=== PATIENT | male | born 1970 | race Caucasian/White ===

== ENCOUNTER 2016-11-08 13:59 | Inpatient (IN) | payer SELFPAY ==
[~2016-11-08] VITALS: Ht 170.2 cm; Wt 101.3 kg
[~2016-11-08 13:59] MED LIST: Aspirin Chewable PO; NO HOME MEDS; Ultram PO; Zestril,Prinivil PO
[2016-11-08 15:10] LABS: HEMATOCRIT 41.4 % (38.0-50.0); MCH 34.1 PG (29.0-34.0); MCHC 34.8 G/DL (30.0-36.0); MCV 98.1 FL (86-99); MEAN PLAT.VOLUME 10.5 uM^3 (9.0-12.4); PLATELET COUNT 305 K/uL (156-360); RBC DIS.WIDTH-CV 12.5 % (11.8-14.6); RBC DIS.WIDTH-SD 44.9 % (39-53); RED BLOOD COUNT 4.22 M/uL (4.00-5.50)
[2016-11-08 15:22] LABS: ANION GAP 17 MEQ/L (2-14); CHLORIDE 93 MEQ/L (99-109); SAMPLE HEMOLYSIS CHECK 0; SAMPLE ICTERIC CHECK 0; SAMPLE LIPEMIA CHECK 1; SODIUM 128 MEQ/L (136-147)
[2016-11-08 15:30] LABS: TROP-I INTERPRETATION NEGATIVE; TROPONIN-I < 0.01 ng/mL (0.0-0.30)
[2016-11-08 16:12] LABS: GFR ESTIMATE (CALCULATED) > 59 mL/min/; GLUCOSE 611 mg/dL (70-99); UREA NITROGEN (BUN) 8 mg/dL (9-23)
[2016-11-08 18:05] LABS: BASE EXCESS 0.4 mEq/L (-3 to +3); BICARBONATE 23.1 mEq/L (22-26); CARBOXY HGB 6.5 % (0-5); PCO2 31 mm Hg (35-45); PO2 88 mm Hg (80-100); pH 7.48 (7.35-7.45)
[2016-11-08 18:06] LABS: COMMENTS - BLOOD GASES A+C+; DEVICE RA; FI02 21 %; SITE RRA; TOTAL RESP RATE 16 resp/min
[2016-11-08 18:41] LABS: POINT-OF-CARE METER ID UU13113702
[2016-11-08] MEDS ORDERED: LISINOPRIL20 MG PO (20:20)
[2016-11-08] MEDS ORDERED: TRAMADOL HCL50 MG PO (20:21)
[2016-11-08] MEDS ORDERED: ELAVIL25 MG PO (20:22)
[2016-11-08] MEDS ORDERED: HUMULIN 70100 UNIT/2 SC (20:22)
[2016-11-08] MEDS ORDERED: NORVASC10 MG PO (20:23)
[2016-11-08] MEDS ORDERED: SALINE NOSE SPR45 M1 BOTH NARES (20:23)
[2016-11-08] MEDS ORDERED: ALLOPURINOL100 MG PO (20:23)
[2016-11-08 21:12] LABS: ALKALINE PHOSPHATASE 94 IU/L (3-129); DIRECT BILIRUBIN 0.1 mg/dL (0.0-0.3); LIPASE 40 U/L (1.0-51.0); TOTAL BILIRUBIN 0.4 MG/DL (0.0-1.0)
[2016-11-08 21:39] LABS: POINT-OF-CARE METER ID UU13113702
[2016-11-08 21:51] LABS: TROP-I INTERPRETATION NEGATIVE; TROPONIN-I < 0.01 ng/mL (0.0-0.30)
[2016-11-08 22:02] LABS: MAGNESIUM 1.6 mg/dL (1.3-2.7)
[2016-11-08 22:06] LABS: SERUM ETHYL ALCOHOL < 10 mg/dL
[2016-11-08 22:12] LABS: Estimated Average Glucose 255 mg/dL (70-123); HEMOGLOBIN A1c (GLYCOHEMOGLOB) 10.5 % HGB (Below 5.7)
[2016-11-08 22:15] VITALS: BP 186/118
[2016-11-08 23:33] VITALS: BP 129/87
[2016-11-09] VITALS (8 sets, daily range): BP systolic 130–180; BP diastolic 74–115
[2016-11-09 03:42] LABS: HEMATOCRIT 37.4 % (38.0-50.0); MCH 33.3 PG (29.0-34.0); MCHC 33.7 G/DL (30.0-36.0); MCV 98.9 FL (86-99); MEAN PLAT.VOLUME 9.8 uM^3 (9.0-12.4); PLATELET COUNT 249 K/uL (156-360); RBC DIS.WIDTH-CV 12.8 % (11.8-14.6); RBC DIS.WIDTH-SD 46.3 % (39-53); RED BLOOD COUNT 3.78 M/uL (4.00-5.50); WHITE BLOOD COUNT 8.2 K/uL (4.1-10.2)
[2016-11-09 03:55] LABS: CHLORIDE 107 mEq/L (99-109); POTASSIUM 3.8 mEq/L (3.7-5.4)
[2016-11-09 03:58] LABS: ANION GAP 10 MEQ/L (2-14)
[2016-11-09 04:01] LABS: GFR ESTIMATE (CALCULATED) > 59 mL/min/
[2016-11-09 04:02] LABS: UREA NITROGEN (BUN) 6 mg/dL (9-23)
[2016-11-09 04:03] LABS: TROP-I INTERPRETATION NEGATIVE; TROPONIN-I < 0.01 ng/mL (0.0-0.30)
[2016-11-09 04:05] LABS: GLUCOSE 195 mg/dL (70-99); SODIUM 140 mEq/L (136-147)
[2016-11-09 04:38] LABS: HDL CHOLESTEROL 27 MG/DL (Desirable>=40); NON-HDL CHOLESTEROL 199 mg/dL (Desirable<160); TOTAL CHOLESTEROL 226 mg/dL (Desirable<200); TRIGLYCERIDES 682 MG/DL (Normal: <150)
[2016-11-09 09:55] LABS: AMPHETAMINES QUANT VALUE 0 NG/ML; BARBITUATES QUANT VALUE 0 NG/ML; BENZODIAZEPINES, URINE SCREEN POSITIVE (200 ng/mL); MARIJUANA QUANT VALUE 0 NG/ML; PHENCYCLIDINE QUANT VALUE 0 NG/ML
[2016-11-10 03:24] VITALS: BP 139/97
[2016-11-10 07:44] VITALS: BP 147/88
[2016-11-10 11:34] VITALS: BP 136/84
[2016-11-10] MEDS ORDERED: AMLODIPINE BESY10 MG PO ×2 (14:21→14:22)
[2016-11-10] MEDS ORDERED: FENOFIBRATE48 MG PO ×2 (14:21)
[2016-11-10] MEDS ORDERED: ASPIR-LOW81 MG PO ×2 (14:21→14:22)
[2016-11-10] MEDS ORDERED: PRAVASTATIN SOD40 MG PO ×2 (14:21→14:22)
[2016-11-10] MEDS ORDERED: ALLOPURINOL100 MG PO ×2 (14:21→14:23)
[2016-11-10] MEDS ORDERED: GABAPENTIN100 MG PO ×2 (14:21→14:22)
[2016-11-10] MEDS ORDERED: HYDROCHLOROTHIA25 MG PO ×2 (14:21→14:23)
[2016-11-10] MEDS ORDERED: LISINOPRIL40 MG PO ×2 (14:21→14:22)
[2016-11-10] MEDS ORDERED: AMITRIPTYLINE H25 MG PO ×2 (14:21→14:23)
[2016-11-10 15:55] VITALS: BP 161/88
[2016-11-10 19:30] VITALS: BP 145/83
[2016-11-10 21:05] LABS: POINT-OF-CARE METER ID UU13113717
[2016-11-10 23:34] VITALS: BP 131/92
[2016-11-11 03:38] VITALS: BP 136/79
[2016-11-11 07:20] VITALS: BP 130/88
[2016-11-11 15:20] VITALS: BP 132/70
[2016-11-11 20:48] LABS: POINT-OF-CARE METER ID UU13113717
== END 2016-11-11 16:35 | disposition home or self-care (01) | DRG 302 ==
LOC: EME 13:59 → EDOF 20:56 → 5SOUTH 20:56
PROVIDERS: Emergency Medicine; Hospitalist; Internal Medicine
DX: I25.9 Chronic ischemic heart disease, unspecified (principal); E13.10 Other specified diabetes mellitus with ketoacidosis without coma; I11.9 Hypertensive heart disease without heart failure; E66.01 Morbid (severe) obesity due to excess calories; M87.851 Other osteonecrosis, right femur; E78.5 Hyperlipidemia, unspecified; E86.0 Dehydration; F17.210 Nicotine dependence, cigarettes, uncomplicated; G47.30 Sleep apnea, unspecified; M47.9 Spondylosis, unspecified; Z68.34 Body mass index [BMI] 34.0-34.9, adult; Z79.4 Long term (current) use of insulin; Z79.899 Other long term (current) drug therapy; F10.20 Alcohol dependence, uncomplicated; H53.8 Other visual disturbances; M25.572 Pain in left ankle and joints of left foot; M79.1 Myalgia; M54.9 Dorsalgia, unspecified; R06.02 Shortness of breath; R07.2 Precordial pain; R20.0 Anesthesia of skin; R20.2 Paresthesia of skin; R60.9 Edema, unspecified; R94.39 Abnormal result of other cardiovascular function study; K76.0 Fatty (change of) liver, not elsewhere classified; K57.30 Diverticulosis of large intestine without perforation or abscess without bleeding; I70.0 Atherosclerosis of aorta
CPT/HCPCS: 36600; 70450; 70551; 71020; 71275; 74174; 78452; 80048; 80061; 80076; 80306 90; 82803; 82948; 83036; 83690; 83735; 84484; 84999; 85027; 93005; 93017; 93880; 99281; 99285; A9500; G0480; J1650; J1815; J2060; J2270; J2785; J7030

== ENCOUNTER 2016-11-14 09:29 | Day surgery (SDC) | payer SELFPAY ==
[~2016-11-14 09:29] MED LIST changes: +ALLOPURINOL100 MG PO; +AMITRIPTYLINE H25 MG PO; +AMLODIPINE BESY10 MG PO; +ASPIR-LOW81 MG PO; +ELAVIL25 MG PO; +FENOFIBRATE48 MG PO; +GABAPENTIN100 MG PO; +HUMULIN 70100 UNIT/2 SC; +HYDROCHLOROTHIA25 MG PO; +LISINOPRIL20 MG PO; +LISINOPRIL40 MG PO; +NORVASC10 MG PO; +PRAVASTATIN SOD40 MG PO; +SALINE NOSE SPR45 M1 BOTH NARES; +TRAMADOL HCL50 MG PO
== END 2016-11-14 19:30 | disposition home or self-care (01) ==
LOC: CATH 09:29
PROC: 4A023N7 Measurement of Cardiac Sampling and Pressure, Left Heart, Percutaneous Approach (ICD-10-PCS; principal; 2016-11-14)
PROC: B2111ZZ Fluoroscopy of Multiple Coronary Arteries using Low Osmolar Contrast (ICD-10-PCS; principal; 2016-11-14)
PROC: B2151ZZ Fluoroscopy of Left Heart using Low Osmolar Contrast (ICD-10-PCS; principal; 2016-11-14)
DX: R07.9 Chest pain, unspecified (principal); I10 Essential (primary) hypertension; E78.5 Hyperlipidemia, unspecified; F17.210 Nicotine dependence, cigarettes, uncomplicated
CPT/HCPCS: C1769; C1887; J1644; J2250; J3010

== ENCOUNTER 2017-01-17 13:44 | Inpatient (IN) | payer OTHER ==
[~2017-01-17] VITALS: Ht 170.2 cm; Wt 95.1 kg
[2017-01-17 14:35] LABS: EOSINOPHIL (%) 0.4 % (0-5); HEMATOCRIT 48.8 % (38.0-50.0); IMMATURE GRANULOCYTE (%) 0.4 % (0.0-0.7); INSTRUMENT ABS NEUTROPHIL CT 7.4 K/uL; LYMPHOCYTE COUNT 2.5 K/uL (1.0-2.8); MCHC 32.6 G/DL (30.0-36.0); MCV 101.2 FL (86-99); MEAN PLAT.VOLUME 9.7 uM^3 (9.0-12.4); MONOCYTE (%) 5.5 % (3-12); MONOCYTE COUNT 0.6 K/uL (0-0.8); NEUTROPHIL (%) 69.8 % (45-76); NEUTROPHIL COUNT 7.4 K/uL (1.8-6.4); PLATELET COUNT 272 K/uL (156-360); RBC DIS.WIDTH-CV 12.4 % (11.8-14.6); RBC DIS.WIDTH-SD 46.9 % (39-53); RED BLOOD COUNT 4.82 M/uL (4.00-5.50); WHITE BLOOD COUNT 10.6 K/uL (4.1-10.2)
[2017-01-17 14:44] LABS: CHLORIDE 106 mEq/L (99-109); POTASSIUM 4.1 mEq/L (3.7-5.4); SODIUM 142 mEq/L (136-147)
[2017-01-17 14:46] LABS: GLUCOSE 181 mg/dL (70-99)
[2017-01-17 14:47] LABS: ANION GAP 14 MEQ/L (2-14)
[2017-01-17 14:49] LABS: SERUM ETHYL ALCOHOL 264 mg/dL
[2017-01-17 14:50] LABS: GFR ESTIMATE (CALCULATED) > 59 mL/min/
[2017-01-17 14:51] LABS: UREA NITROGEN (BUN) 8 mg/dL (9-23)
[2017-01-17 14:56] LABS: TROP-I INTERPRETATION NEGATIVE; TROPONIN-I < 0.01 ng/mL (0.0-0.30)
[2017-01-17 17:06] LABS: ADD MIUA? NO; BILIRUBIN NEGATIVE; BLOOD NEGATIVE; COLOR YELLOW ((YELLOW)); GLUCOSE (STRIP) NEGATIVE; KETONES 20; LEUKOCYTES NEGATIVE; NITRITE NEGATIVE; PROTEIN (STRIP) 30; SPECIFIC GRAVITY 1.017 (1.000-1.030); UCUL ADDED? NO; UROBILINOGEN 0.2 MG/DL (0.2-1.0)
[2017-01-17 17:43] LABS: AMPHETAMINE NEGATIVE (500 ng/mL); BARBITURATES NEGATIVE (200 ng/mL); BENZODIAZEPINES PRESUMPTIVE POSITIVE (150 ng/mL); COCAINE PRESUMPTIVE POSITIVE (150 ng/mL); INTERNAL CONTROLS VALID? YES; METHADONE NEGATIVE (200 ng/mL); METHAMPHETAMINE NEGATIVE (500 ng/mL); OPIATES (MORPHINE) NEGATIVE (100 ng/mL); OXYCODONE NEGATIVE (100 ng/mL); PHENCYCLIDINE NEGATIVE (25 ng/mL); PROPOXYPHENE NEGATIVE (300 ng/mL); THC CANNABINOIDS NEGATIVE (50 ng/mL); TRICYCLIC ANTIDEPRESSANTS NEGATIVE (300 ng/mL)
[2017-01-17 17:44] LABS: ADD MEDTOX COMMENT Y
[2017-01-17 18:07] LABS: BENZODIAZEPINES QUANT VALUE 0 NG/ML; BENZODIAZEPINES, URINE SCREEN Negative (200 ng/mL)
[2017-01-18 11:32] VITALS: BP 150/108
[2017-01-18 11:36] VITALS: BP 150/108
[2017-01-18 16:00] VITALS: BP 192/109
[2017-01-18 17:47] LABS: POINT-OF-CARE METER ID UU14188576
[2017-01-18 20:37] VITALS: BP 174/95
[2017-01-18 21:23] LABS: POINT-OF-CARE METER ID UU14188576
[2017-01-19 06:17] LABS: POINT-OF-CARE METER ID UU14188576; POINT-OF-CARE USER ID ENVTLS63
[2017-01-19 07:58] VITALS: BP 171/90
[2017-01-19 09:22] LABS: Estimated Average Glucose 177 mg/dL (70-123)
[2017-01-19 09:37] LABS: HEMOGLOBIN A1c (GLYCOHEMOGLOB) 7.8 % HGB (Below 5.7)
[2017-01-19 12:12] LABS: POINT-OF-CARE METER ID UU14188576; POINT-OF-CARE USER ID BHSMRC
[2017-01-19 16:03] VITALS: BP 129/72
[2017-01-19 16:50] LABS: POINT-OF-CARE METER ID UU14188576; POINT-OF-CARE USER ID BHSMEW
[2017-01-19 20:38] LABS: POINT-OF-CARE METER ID UU14188576; POINT-OF-CARE USER ID ENVTLS63
[2017-01-20 06:19] LABS: POINT-OF-CARE METER ID UU14188576; POINT-OF-CARE USER ID ENVTLS63
[2017-01-20 07:43] VITALS: BP 126/77
[2017-01-20 12:02] LABS: POINT-OF-CARE METER ID UU14188576
[2017-01-20 15:29] VITALS: BP 110/77
[2017-01-20 17:06] LABS: POINT-OF-CARE METER ID UU14188576
[2017-01-20 19:45] VITALS: BP 144/94
[2017-01-20 20:46] LABS: POINT-OF-CARE METER ID UU14188576
[2017-01-21 06:22] LABS: POINT-OF-CARE METER ID UU14188576
[2017-01-21 07:44] VITALS: BP 133/73
[2017-01-21 11:56] LABS: POINT-OF-CARE METER ID UU14188576; POINT-OF-CARE USER ID BHSCRC
[2017-01-21 15:38] VITALS: BP 117/63
[2017-01-21 17:06] LABS: POINT-OF-CARE METER ID UU14188576; POINT-OF-CARE USER ID BHSCRC
[2017-01-21 21:06] LABS: POINT-OF-CARE METER ID UU14188576; POINT-OF-CARE USER ID BHSMEW
[2017-01-22 06:23] LABS: POINT-OF-CARE METER ID UU14188576
[2017-01-22 07:46] VITALS: BP 124/84
[2017-01-22 12:29] LABS: POINT-OF-CARE METER ID UU14188576
[2017-01-22 15:16] VITALS: BP 133/92
[2017-01-22 16:50] LABS: POINT-OF-CARE METER ID UU14188576
[2017-01-22 20:57] LABS: POINT-OF-CARE METER ID UU14188576; POINT-OF-CARE USER ID ENVTLS63
[2017-01-23 06:22] LABS: POINT-OF-CARE METER ID UU14188576; POINT-OF-CARE USER ID ENVTLS63
[2017-01-23 08:14] VITALS: BP 113/67
[2017-01-23] MEDS ORDERED: ESCITALOPRAM OX10 MG PO (10:38)
[2017-01-23] MEDS ORDERED: GLUCOPHAGE500 MG PO (10:38)
[2017-01-23] MEDS ORDERED: NEURONTIN300 MG PO (10:42)
[2017-01-23] MEDS ORDERED: REVIA50 MG PO (10:42)
== END 2017-01-23 11:32 | disposition home or self-care (01) | DRG 885 ==
LOC: EME → EDBD 13:44 → EDOF 01-18 09:47 → 1WEST 01-18 09:47 → ENRESERV 01-18 10:37 → 1WEST 01-18 11:20
PROVIDERS: Emergency Medicine; Psychiatry & Neurology Psychiatry
PROC: HZ2ZZZZ Detoxification Services for Substance Abuse Treatment (ICD-10-PCS; principal; 2017-01-18)
DX: F33.2 Major depressive disorder, recurrent severe without psychotic features (principal); R45.851 Suicidal ideations; F10.230 Alcohol dependence with withdrawal, uncomplicated; Y90.8 Blood alcohol level of 240 mg/100 ml or more; F41.9 Anxiety disorder, unspecified; F14.10 Cocaine abuse, uncomplicated; R07.9 Chest pain, unspecified; D53.1 Other megaloblastic anemias, not elsewhere classified; G89.29 Other chronic pain; M54.9 Dorsalgia, unspecified; M79.2 Neuralgia and neuritis, unspecified; E11.9 Type 2 diabetes mellitus without complications; I10 Essential (primary) hypertension; F17.200 Nicotine dependence, unspecified, uncomplicated; E66.9 Obesity, unspecified; Z68.32 Body mass index [BMI] 32.0-32.9, adult; Z86.73 Personal history of transient ischemic attack (TIA), and cerebral infarction without residual deficits; Z91.19 Patient's noncompliance with other medical treatment and regimen
CPT/HCPCS: 80048; 81003; 82607; 82746; 82948; 83036; 84443; 84484; 84999; 85025; 90839; 93005; 97150 GO; 97165 GO; 99281; 99285; G0480; J1815

== ENCOUNTER 2017-01-27 08:45 | Inpatient (IN) | payer OTHER ==
[~2017-01-27] VITALS: Ht 170.2 cm; Wt 90.4 kg
[~2017-01-27 08:45] MED LIST changes: +ESCITALOPRAM OX10 MG PO; +GLUCOPHAGE500 MG PO; +NEURONTIN300 MG PO; +REVIA50 MG PO
[2017-01-27 09:33] LABS: EOSINOPHIL (%) 0.4 % (0-5); HEMATOCRIT 51.3 % (38.0-50.0); IMMATURE GRANULOCYTE (%) 1.4 % (0.0-0.7); IMMATURE GRANULOCYTE COUNT 0.1 K/uL; LYMPHOCYTE COUNT 2.1 K/uL (1.0-2.8); MCH 33.3 PG (29.0-34.0); MCHC 31.6 G/DL (30.0-36.0); MEAN PLAT.VOLUME 10.4 uM^3 (9.0-12.4); MONOCYTE (%) 7.5 % (3-12); MONOCYTE COUNT 0.6 K/uL (0-0.8); NEUTROPHIL (%) 63.3 % (45-76); PLATELET COUNT 284 K/uL (156-360); RBC DIS.WIDTH-SD 47.1 % (39-53); RED BLOOD COUNT 4.86 M/uL (4.00-5.50); WHITE BLOOD COUNT 7.8 K/uL (4.1-10.2)
[2017-01-27 09:34] LABS: MCV 105.6 FL (86-99)
[2017-01-27 09:37] LABS: CHLORIDE 105 mEq/L (99-109); POTASSIUM 2.7 mEq/L (3.7-5.4); SODIUM 142 mEq/L (136-147)
[2017-01-27 09:40] LABS: GLUCOSE 109 mg/dL (70-99)
[2017-01-27 09:41] LABS: ANION GAP 29 MEQ/L (2-14); TOTAL BILIRUBIN 0.4 mg/dL (0.0-1.0)
[2017-01-27 09:44] LABS: ALKALINE PHOSPHATASE 88 IU/L (3-129)
[2017-01-27 09:45] LABS: UREA NITROGEN (BUN) 15 mg/dL (9-23)
[2017-01-27 09:47] LABS: SALICYLATE < 5.0 MG/DL (15-30)
[2017-01-27 09:47] LABS: ADD MIUA? YES; BILIRUBIN NEGATIVE; BLOOD NEGATIVE; COLOR YELLOW ((YELLOW)); GLUCOSE (STRIP) NEGATIVE; KETONES 5; LEUKOCYTES SMALL; NITRITE NEGATIVE; PROTEIN (STRIP) 100; SPECIFIC GRAVITY 1.015 (1.000-1.030); UROBILINOGEN 0.2 MG/DL (0.2-1.0)
[2017-01-27 09:57] LABS: AMPHETAMINE NEGATIVE (500 ng/mL); BACTERIA RARE /HPF; BARBITURATES NEGATIVE (200 ng/mL); BENZODIAZEPINES PRESUMPTIVE POSITIVE (150 ng/mL); COCAINE PRESUMPTIVE POSITIVE (150 ng/mL); EPITHELIAL CELLS RARE /HPF; HYALINE CASTS 0-5 /LPF; METHADONE NEGATIVE (200 ng/mL); METHAMPHETAMINE NEGATIVE (500 ng/mL); MUCUS TRACE /LPF; OPIATES (MORPHINE) NEGATIVE (100 ng/mL); OXYCODONE NEGATIVE (100 ng/mL); PHENCYCLIDINE NEGATIVE (25 ng/mL); PROPOXYPHENE NEGATIVE (300 ng/mL); RED BLOOD CELLS 0-5 /HPF (0-5); THC CANNABINOIDS NEGATIVE (50 ng/mL); TRICYCLIC ANTIDEPRESSANTS NEGATIVE (300 ng/mL); WHITE BLOOD CELLS 20-30 /HPF (0-5)
[2017-01-27 09:58] LABS: ADD MEDTOX COMMENT Y; INTERNAL CONTROLS VALID? YES
[2017-01-27 10:05] LABS: SERUM ETHYL ALCOHOL 130 mg/dL
[2017-01-27 10:06] LABS: GFR ESTIMATE (CALCULATED) > 59 mL/min/
[2017-01-27 10:26] LABS: BASE EXCESS -19.3 mEq/L (-3 to +3); BICARBONATE 11.4 mEq/L (22-26); CARBOXY HGB 6.1 % (0-5); METHEMOGLOBIN 1.1 % (0-1.5); PCO2 43 mm Hg (35-45); PO2 310 mm Hg (80-100); pH 7.03 (7.35-7.45)
[2017-01-27 10:27] LABS: COMMENTS - BLOOD GASES A+C+; DEVICE 980VENT; FI02 100 %; MECHANICAL RATE 18 resp/min; MODE AC; PEEP 10 CM/H20; SITE RR; TIDAL VOLUME 500 ML; TOTAL RESP RATE 18 resp/min
[2017-01-27 10:51] LABS: BENZODIAZEPINES, URINE SCREEN POSITIVE (200 ng/mL)
[2017-01-27 12:26] LABS: BASE EXCESS -14.1 mEq/L (-3 to +3); CARBOXY HGB 4.4 % (0-5); METHEMOGLOBIN 1.3 % (0-1.5); PCO2 43 mm Hg (35-45)
[2017-01-27 12:27] LABS: BICARBONATE 14.6 mEq/L (22-26); DEVICE VENT; FI02 80 %; MECHANICAL RATE 18 resp/min; PO2 79 mm Hg (80-100)
[2017-01-27 12:28] LABS: pH 7.14 (7.35-7.45)
[2017-01-27] MEDS ORDERED: HUMULIN 70100 UNIT/2 SC (16:04)
[2017-01-27 17:00] VITALS: BP 130/76
[2017-01-27 17:08] LABS: CHLORIDE 103 mEq/L (99-109); SODIUM 135 mEq/L (136-147)
[2017-01-27 17:09] LABS: MAGNESIUM 1.9 mg/dL (1.3-2.7)
[2017-01-27 17:10] LABS: GLUCOSE 145 mg/dL (70-99)
[2017-01-27 17:12] LABS: ANION GAP 12 MEQ/L (2-14)
[2017-01-27 17:14] LABS: GFR ESTIMATE (CALCULATED) > 59 mL/min/
[2017-01-27 17:15] LABS: UREA NITROGEN (BUN) 13 mg/dL (9-23)
[2017-01-27 17:16] LABS: POTASSIUM 5.5 mEq/L (3.7-5.4)
[2017-01-27 19:30] VITALS: BP 134/82
[2017-01-27 23:46] VITALS: BP 123/72
[2017-01-28 02:51] LABS: POINT-OF-CARE METER ID UU13113698
[2017-01-28 04:05] VITALS: BP 132/72
[2017-01-28 05:56] LABS: HEMATOCRIT 44.6 % (38.0-50.0); MCH 33.9 PG (29.0-34.0); MCHC 32.7 G/DL (30.0-36.0); MCV 103.5 FL (86-99); MEAN PLAT.VOLUME 10.9 uM^3 (9.0-12.4); PLATELET COUNT 269 K/uL (156-360); RBC DIS.WIDTH-CV 12.1 % (11.8-14.6); RBC DIS.WIDTH-SD 46.2 % (39-53); RED BLOOD COUNT 4.31 M/uL (4.00-5.50); WHITE BLOOD COUNT 7.9 K/uL (4.1-10.2)
[2017-01-28 06:44] LABS: ALKALINE PHOSPHATASE 68 IU/L (3-129); ANION GAP 6 MEQ/L (2-14); CHLORIDE 97 MEQ/L (99-109); GFR ESTIMATE (CALCULATED) > 59 mL/min/; GLUCOSE 109 mg/dL (70-99); POTASSIUM 4.3 MEQ/L (3.7-5.4); SAMPLE HEMOLYSIS CHECK 0; SAMPLE ICTERIC CHECK 0; SAMPLE LIPEMIA CHECK 0; SODIUM 134 MEQ/L (136-147); TOTAL BILIRUBIN 0.8 MG/DL (0.0-1.0); UREA NITROGEN (BUN) 9 mg/dL (9-23)
[2017-01-28 07:44] VITALS: BP 132/86
[2017-01-28 09:38] LABS: TROP-I INTERPRETATION NEGATIVE; TROPONIN-I < 0.01 ng/mL (0.0-0.30)
[2017-01-28 11:30] VITALS: BP 172/93
[2017-01-28 11:46] LABS: POINT-OF-CARE METER ID UU13113698
[2017-01-28 15:20] LABS: TROP-I INTERPRETATION NEGATIVE; TROPONIN-I 0.01 ng/mL (0.0-0.30)
[2017-01-28 15:55] VITALS: BP 136/83
[2017-01-28 16:24] LABS: POINT-OF-CARE METER ID UU13113698
[2017-01-28 20:10] VITALS: BP 106/69
[2017-01-28 20:54] LABS: POINT-OF-CARE METER ID UU14174216
[2017-01-29 00:38] VITALS: BP 117/68
[2017-01-29 03:35] VITALS: BP 108/67
[2017-01-29 06:26] LABS: EOSINOPHIL (%) 1.5 % (0-5); EOSINOPHIL COUNT 0.1 K/uL (0-0.3); HEMATOCRIT 44.3 % (38.0-50.0); IMMATURE GRANULOCYTE (%) 0.4 % (0.0-0.7); INSTRUMENT ABS NEUTROPHIL CT 4.7 K/uL; LYMPHOCYTE COUNT 1.8 K/uL (1.0-2.8); MCH 32.5 PG (29.0-34.0); MCHC 32.3 G/DL (30.0-36.0); MCV 100.7 FL (86-99); MEAN PLAT.VOLUME 11.1 uM^3 (9.0-12.4); MONOCYTE (%) 9.9 % (3-12); MONOCYTE COUNT 0.7 K/uL (0-0.8); NEUTROPHIL (%) 63.4 % (45-76); NEUTROPHIL COUNT 4.7 K/uL (1.8-6.4); PLATELET COUNT 271 K/uL (156-360); RBC DIS.WIDTH-CV 11.8 % (11.8-14.6); RBC DIS.WIDTH-SD 43.9 % (39-53); WHITE BLOOD COUNT 7.4 K/uL (4.1-10.2)
[2017-01-29 07:06] LABS: ALKALINE PHOSPHATASE 65 IU/L (3-129); ANION GAP 7 MEQ/L (2-14); CHLORIDE 100 MEQ/L (99-109); GFR ESTIMATE (CALCULATED) > 59 mL/min/; GLUCOSE 149 mg/dL (70-99); POTASSIUM 3.7 MEQ/L (3.7-5.4); SAMPLE HEMOLYSIS CHECK 0; SAMPLE ICTERIC CHECK 0; SAMPLE LIPEMIA CHECK 0; SODIUM 138 MEQ/L (136-147); UREA NITROGEN (BUN) 6 mg/dL (9-23)
[2017-01-29 07:15] LABS: TOTAL BILIRUBIN 0.6 MG/DL (0.0-1.0)
[2017-01-29 07:29] VITALS: BP 145/85
[2017-01-29 08:05] LABS: POINT-OF-CARE METER ID UU14174216
[2017-01-29 12:10] VITALS: BP 146/81
[2017-01-29 12:21] LABS: HBSG INDEX 0.51; HPCA INDEX 0.15
[2017-01-29 12:22] LABS: ANTI-HEPATITIS A VIRUS (IGM) Nonreactive; HAV INDEX 0.16
[2017-01-29 12:23] LABS: ANTI-HEPATITIS B CORE (IGM) Nonreactive; HBC IgM INDEX 0.08
[2017-01-29] MEDS ORDERED: SORE THROAT LO1 EAC3 MM (15:01)
[2017-01-29] MEDS ORDERED: NICOTINE PATCH1 EAC1 TD (15:01)
[2017-01-29] MEDS ORDERED: THERAGRAN1 TABLET PO (15:02)
[2017-01-29] MEDS ORDERED: B-1100 MG PO (15:02)
[2017-01-29] MEDS ORDERED: FOLIC ACID1 MG PO (15:02)
== END 2017-01-29 15:49 | disposition home or self-care (01) | DRG 917 ==
LOC: EME → EDBD 08:45 → EME 08:45 → EDOF 15:16 → ENRESERV 15:26 → 4EAST 16:57
PROVIDERS: Emergency Medicine; Internal Medicine; Physician Assistant Medical
DX: T51.0X1A Toxic effect of ethanol, accidental (unintentional), initial encounter (principal); J96.01 Acute respiratory failure with hypoxia; J69.0 Pneumonitis due to inhalation of food and vomit; T42.4X1A Poisoning by benzodiazepines, accidental (unintentional), initial encounter; T40.5X1A Poisoning by cocaine, accidental (unintentional), initial encounter; J68.0 Bronchitis and pneumonitis due to chemicals, gases, fumes and vapors; F10.229 Alcohol dependence with intoxication, unspecified; E87.2 Acidosis; E87.6 Hypokalemia; I10 Essential (primary) hypertension; F17.200 Nicotine dependence, unspecified, uncomplicated; F33.2 Major depressive disorder, recurrent severe without psychotic features; E11.9 Type 2 diabetes mellitus without complications; E86.0 Dehydration; E86.1 Hypovolemia; E78.5 Hyperlipidemia, unspecified; Y90.6 Blood alcohol level of 120-199 mg/100 ml; J98.11 Atelectasis; Z91.14 Patient's other noncompliance with medication regimen; F14.220 Cocaine dependence with intoxication, uncomplicated; F13.220 Sedative, hypnotic or anxiolytic dependence with intoxication, uncomplicated; Z59.0 Homelessness
CPT/HCPCS: 36600; 70450; 71010; 80048 91; 80053; 80074; 81003; 82803; 82948; 83605; 83735; 83930; 84132 91; 84484; 84999; 85025; 85027; 87040; 87070; 87086; 87186; 87205; 87801; 93005; 94002; 94799; 99202; 99281; 99285; G0480; J1650; J1815; J2310; J2704; J3480; J7030; J7050